=== PATIENT | male | born 1975 | race Caucasian/White ===

== ENCOUNTER 2020-06-05 22:42 | Emergency (ER) | payer OTHER ==
[2020-06-06] MEDS ORDERED: IBUPROFEN600 MG PO (00:41)
== END 2020-06-06 01:00 | disposition home or self-care (01) ==
LOC: ER1 22:42
DX: S60.222A Contusion of left hand, initial encounter (principal); F17.210 Nicotine dependence, cigarettes, uncomplicated; W22.8XXA Striking against or struck by other objects, initial encounter
CPT/HCPCS: 73130; 99283